=== PATIENT | female | born 1975 | race African-American/Black ===

== ENCOUNTER 2020-07-22 15:52 | Emergency (ER) | payer OTHER ==
[~2020-07-22] VITALS: Ht 170.2 cm; Wt 77.0 kg
[2020-07-22] MEDS ORDERED: IBUPROFEN 200 MG TABLET ONE (16:34)
[2020-07-22] MEDS ORDERED: IBUPROFEN 200 MG TABLET PO ONE (17:00)
[2020-07-22 17:22] LABS: ALBUMIN 4.4 g/dL (3.4-5.0); ANION GAP 4 mmol/L (5-15); BASOPHILS % (AUTO) 1 % (0-1); CALCIUM 9.1 mg/dL (8.5-10.1); CHLORIDE 106 mmol/L (98-107); EOSINOPHILS % (AUTO) 2 % (1-7); LYMPHOCYTES % (AUTO) 34 % (22-44); MEAN CORPUSCULAR HEMOGLOBIN 28.9 pg (27.0-34.8); MEAN CORPUSCULAR HGB CONC 33.5 g/dL (32.4-35.8); MEAN PLATELET VOLUME 8.4 fL (7.4-10.4); MONOCYTES % (AUTO) 15 % (2-9); NEUTROPHILS % (AUTO) 47 % (42-75); PLATELET COUNT 222 x10^3/uL (130-400); RED BLOOD COUNT 4.69 x10^6/uL (3.82-5.3); RED CELL DISTRIBUTION WIDTH 13.9 % (9.6-15.2)
[2020-07-22 17:51] LABS: MD SCAN
[2020-07-22 18:17] VITALS: BP 126/85
== END 2020-07-22 18:20 | disposition home or self-care (01) ==
LOC: ED 16:09
DX: B34.9 Viral infection, unspecified (principal); R00.0 Tachycardia, unspecified; R07.89 Other chest pain; I10 Essential (primary) hypertension
CPT/HCPCS: 36415; 71045; 80048; 82040; 83605; 84145; 85025; 93005; 99285